=== PATIENT | male | born 1975 | race Caucasian/White ===

== ENCOUNTER 2017-07-03 17:32 | Emergency (ER) | payer OTHER, MEDICAID, SELFPAY ==
[2017-07-03 19:00] VITALS: BP 117/72; PULSE 53; RESP 18; TEMP 36.6; O2SAT 98; BMI 30.5
--- NOTE | 2017-07-03 20:06 | ED_ITS ---
HPI - Dental/Oral <Wanda Dias PA-C - Last Filed: 07/03/17 21:57> General Chief complaint: Dental/Oral Stated complaint: TOOTH INFECTION Time Seen by Provider: 07/03/17 20:01 Source: patient Mode of arrival: ambulatory Limitations: no limitations History of Present Illness HPI Narrative: This 41-year-old male has had problems with inflammation in his right lower wisdom tooth for about a month. He states he has poor dentition and has had problems intermittently. He has been trying to get into a dentist but so far not finding 1 that takes his insurance locally. He states he has noticed swelling and intermittent purulent drainage from around the tooth, and was concerned that he should be on antibiotics for this while he waits for dental appointment. He denies any fever, upper respiratory symptoms, swollen glands or other new complaints with this. He is not having pain. He notes that his last two dental infections did not resolve with amox. Related Data Home Medications Medication Instructions Recorded Confirmed fluoxetine [Prozac] 60 mg PO QDAY #0 11/05/12 levothyroxine 200 mcg IV Q24H #0 11/05/12 bupropion HCl [Wellbutrin SR] PO QDAY #0 11/08/15 Previous Rx's Medication Instructions Recorded penicillin V potassium 500 mg PO Q6H #40 tab 11/08/15 cyclobenzaprine 5 mg PO Q8HP PRN #10 tab 01/25/16 naproxen 500 mg PO Q12HP PRN #20 tab 01/25/16 Allergies Allergy/AdvReac Type Severity Reaction Status Date / Time codeine AdvReac Mild NAUSEA Unverified 05/24/17 13:03 Review of Systems <Wanda Dias PA-C - Last Filed: 07/03/17 21:57> Review of Systems All systems reviewed & are unremarkable except as noted in HPI and below Exam <Wanda Dias PA-C - Last Filed: 07/03/17 21:57> Narrative Exam Narrative: GENERAL APPEARANCE: Patient sitting comfortably, in no distress. HEAD: No sinus TTP. EYES: PERRL, EOMI. EARS: Normal auditory canals, TMS intact with normal light reflexes. ORAL CAVITY: Poor dentition. There is erythema and edema around the right lower wisdom tooth and 2nd molar without active drainage, mildly tender to touch THROAT: Clear. NECK/THYROID: Neck supple, full range of motion, no cervical lymphadenopathy. LUNGS: Clear to auscultation bilaterally, clear to percussion, no cough on exam. HEART: RRR without murmur, nl S1, S2, no S3 or S4. Initial Vital Signs Initial Vital Signs: Vital Signs Temperature 97.9 F 07/03/17 19:00 Pulse Rate 53 L 07/03/17 19:00 Respiratory Rate 18 07/03/17 19:00 Blood Pressure 117/72 07/03/17 19:00 Pulse Oximetry 98 07/03/17 19:00 <Uche Fonseca MD - Last Filed: 07/14/17 08:32> Initial Vital Signs Initial Vital Signs: Vital Signs Temperature 97.9 F 07/03/17 19:00 Pulse Rate 53 L 07/03/17 19:00 Respiratory Rate 18 07/03/17 19:00 Blood Pressure 117/72 07/03/17 19:00 Pulse Oximetry 98 07/03/17 19:00 Course <Wanda Dias PA-C - Last Filed: 07/03/17 21:57> Vital Signs - 8 hr 07/03/17 19:00 07/03/17 20:33 Temperature 97.9 F 98.2 F Pulse Rate 53 L 54 L Respiratory Rate 18 16 Blood Pressure 117/72 115/70 Pulse Oximetry 98 98 <Uche Fonseca MD - Last Filed: 07/14/17 08:32> Vital Signs - 8 hr 07/03/17 19:00 07/03/17 20:33 Temperature 97.9 F 98.2 F Pulse Rate 53 L 54 L Respiratory Rate 18 16 Blood Pressure 117/72 115/70 Pulse Oximetry 98 98 Discharge Plan Departure Patient Disposition: Home, Self-Care Clinical Impression: Dental infection Discharge Date/Time: 07/03/17 20:33 Interventions: ED Discharge Assessment Last Done: 07/03/17 20:33 Instructions: DI for Tooth Abscess Activity Restrictions/Additional Instructions: Return if you are feeling acutely worse, otherwise start the antibiotic as soon as you pick it up. Use ibuprofen or Aleve over the counter as needed for pain. Call [facility] in [facility] tomorrow to see about an appointment with them (they are most likely to take your insurance from the dentists I know in this area) Prescriptions: No Action levothyroxine 200 MCG recon soln 200 mcg IV Q24H Qty: 0 RF: 0 fluoxetine [Prozac] 40 MG capsule 60 mg PO QDAY Qty: 0 RF: 0 bupropion HCl [Wellbutrin SR] 100 mg Tablet Extended Release 12 Hr PO QDAY Qty: 0 RF: 0 penicillin V potassium 500 MG tablet 500 mg PO Q6H Qty: 40 RF: 0 naproxen 500 MG tablet 500 mg PO Q12HP PRNQty: 20 RF: 0 cyclobenzaprine 5 MG tablet 5 mg PO Q8HP PRNQty: 10 RF: 0 Referrals: Paras Santillan MD [Primary Care Provider] - <Uche Fonseca MD - Last Filed: 07/14/17 08:32> Cosign ED Attending Cosignature Attestation: The PA/INFORMATION MANAGEMENT MANAGER functioned independently for the care of this pt, I was available, but not asked to participate in care. I am unable to determine appropriateness of management without personally examining the pt.
[2017-07-03 20:33] VITALS: BP 115/70; PULSE 54; RESP 16; TEMP 36.8; O2SAT 98
== END 2017-07-03 20:33 | disposition home or self-care (01) ==
PROVIDERS: Emergency Provider Internal Medicine; PCP Family Medicine
DX: K04.7 Periapical abscess without sinus (principal)
CPT/HCPCS: 99282

== ENCOUNTER → 2018-06-05 20:04 | Outpatient (CLI) | payer OTHER, SELFPAY | LOC: LAB 20:05 | PROVIDERS: PCP Family Medicine; Visit Provider Physician Assistant | DX: L98.9 Disorder of the skin and subcutaneous tissue, unspecified (principal) | CPT/HCPCS: 87070; 87075; 87077; 87147; 87205 ==

== ENCOUNTER → 2018-09-18 16:47 | Outpatient (CLI) | payer OTHER, SELFPAY ==
[2018-09-18 17:40] LABS: Alanine Aminotransferase 45 IU/L (21-72); Albumin 4.4 g/dL (3.5-5.0); Albumin Globulin Ratio 1.3 (1.0-2.8); Alkaline Phosphatase 80 U/L (38-126); Aspartate Aminotransferase 39 IU/L (17-59); Bilirubin Total 0.5 mg/dL (0.2-1.3); Bilirubin Unconjugated 0.2 mg/dL (0.0-1.1); Globulin 3.3 g/dL (1.7-4.1); HEMOLYSIS 18 (0-50); Total Protein 7.7 g/dL (6.3-8.2)
== END ==
PROVIDERS: PCP Family Medicine; Visit Provider Family Medicine
DX: R74.8 Abnormal levels of other serum enzymes (principal)
CPT/HCPCS: 36415; 80076

== ENCOUNTER → 2018-10-19 16:32 | Outpatient (CLI) | payer OTHER, SELFPAY ==
[2018-10-19 18:15] LABS: Free T3, Triiodothyronine Free 4.53 pg/mL (2.77-5.27); Free T4, Direct Thyroxine 1.72 ng/dL (0.78-2.19)
[2018-10-19 18:29] LABS: Thyroid Stimulating Hormone < 0.02 uIU/mL (0.47-4.68)
== END ==
PROVIDERS: PCP Family Medicine; Visit Provider Family Medicine
DX: E03.9 Hypothyroidism, unspecified (principal)
CPT/HCPCS: 36415; 84439; 84443; 84481

== ENCOUNTER → 2019-03-08 16:33 | Outpatient (CLI) | payer OTHER, SELFPAY ==
[2019-03-08 17:30] LABS: Free T3, Triiodothyronine Free 4.48 pg/mL (2.77-5.27); Free T4, Direct Thyroxine 1.84 ng/dL (0.78-2.19)
[2019-03-08 17:44] LABS: Thyroid Stimulating Hormone < 0.02 uIU/mL (0.47-4.68)
== END ==
PROVIDERS: PCP Family Medicine; Visit Provider Family Medicine
DX: E03.9 Hypothyroidism, unspecified (principal); F33.1 Major depressive disorder, recurrent, moderate
CPT/HCPCS: 36415; 84439; 84443; 84481

== ENCOUNTER → 2019-07-09 15:42 | Outpatient (CLI) | payer OTHER, SELFPAY ==
[2019-07-09 17:01] LABS: Alanine Aminotransferase 31 IU/L (<50); Albumin 4.1 g/dL (3.5-5.0); Albumin Globulin Ratio 1.2 (1.0-2.8); Alkaline Phosphatase 80 U/L (38-126); Aspartate Aminotransferase 29 IU/L (17-59); Bilirubin Total 0.4 mg/dL (0.2-1.3); Bilirubin Unconjugated 0.2 mg/dL (0.0-1.1); Globulin 3.3 g/dL (1.7-4.1); HEMOLYSIS < 15 (0-50); Total Protein 7.4 g/dL (6.3-8.2)
[2019-07-09 17:18] LABS: Free T3, Triiodothyronine Free 4.46 pg/mL (2.77-5.27)
[2019-07-09 17:32] LABS: Thyroid Stimulating Hormone < 0.02 uIU/mL (0.47-4.68)
== END ==
PROVIDERS: PCP Family Medicine; Referring Provider Family Medicine; Visit Provider Family Medicine
DX: E03.9 Hypothyroidism, unspecified (principal); R74.8 Abnormal levels of other serum enzymes
CPT/HCPCS: 36415; 80076; 84439; 84443; 84481

== ENCOUNTER → 2019-07-10 06:43 | Outpatient (CLI) | payer OTHER, SELFPAY ==
--- NOTE | 2019-07-10 | DI.US.S_ITS ---
PROCEDURE: US PERIPH VENOUS LOW EXTREM RT INDICATIONS: CALF PAIN TECHNIQUE: Real-time imaging, as well as color and pulse Doppler interrogation, were performed of the lower extremity deep veins from the inguinal ligament to the popliteal fossa. COMPARISON: None. FINDINGS: The common femoral, femoral and popliteal veins are normally compressible, and free of intraluminal thrombus. Color and pulse Doppler demonstrate normal phasic intraluminal flow. There is normal augmentation response to distal compression maneuver. IMPRESSION: No DVT found. Superficial vein varicosities are noted to contain thrombosis in the right lower calf area, palpable and tender. Dictated by: Luis Felipe Mello M.D. on 07/10/2019 at 10:58 Approved by: Luis Felipe Mello M.D. on 07/10/2019 at 10:59
== END ==
LOC: US 06:44
PROVIDERS: PCP Family Medicine; Referring Provider Family Medicine; Visit Provider Family Medicine
DX: M79.661 Pain in right lower leg (principal); I82.811 Embolism and thrombosis of superficial veins of right lower extremity
CPT/HCPCS: 93971

== ENCOUNTER → 2020-08-24 07:38 | Outpatient (CLI) | payer OTHER, SELFPAY ==
[2020-08-24 09:27] LABS: Add Manual Diff / Slide Review NO; Basophils Absolute Auto 100 /uL (0-100); Basophils Percent Auto 0.8 % (0-2); Eosinophils Absolute Auto 300 /uL (0-450); Eosinophils Percent Auto 5.3 % (2-4); Hematocrit 48.6 % (41-53); Hemoglobin 16.6 g/dL (13.5-17.5); Lymphocytes Absolute Auto 1900 /uL (1100-4500); Lymphocytes Percent Auto 30.1 % (25-40); Mean Corpuscular HGB Conc 34.1 % (30-36); Mean Corpuscular Hemoglobin 29.4 PG (26-34); Monocytes Absolute Auto 500 /uL (0-900); Monocytes Percent Auto 7.2 % (3-14); Neutrophils Absolute Auto 3600 /uL (1500-7000); Neutrophils Percent Auto 56.6 % (50-75); Platelet Count 307 X10^3/uL (150-400); Red Blood Cell Count 5.65 X10^6/uL (4.5-5.9); Red Cell Distribution Width 13.9 % (11.6-14.8); White Blood Cell Count 6.4 X10^3/uL (4.5-11.0)
[2020-08-24 09:54] LABS: Alanine Aminotransferase 62 IU/L (<50); Albumin 4.2 g/dL (3.5-5.0); Albumin Globulin Ratio 1.1 (1.0-2.8); Alkaline Phosphatase 84 U/L (38-126); Aspartate Aminotransferase 64 IU/L (17-59); BUN Creatinine Ratio 23.3 (6-22); Bilirubin Total 1.1 mg/dL (0.2-1.3); Bilirubin Unconjugated 0.6 mg/dL (0.0-1.1); Blood Urea Nitrogen 17 mg/dL (9-20); Calcium 9.2 mg/dL (8.4-10.2); Carbon Dioxide 25 mmol/L (22-32); Chloride 102 mmol/L (98-107); Cholesterol 211 mg/dL (140-199); Estimated Glomerular Filt Rate > 60.0 mL/min (>60); Globulin 3.8 g/dL (1.7-4.1); Glucose 91 mg/dL (70-100); HDL Cholesterol 51 mg/dL (40-60); LDL Cholesterol Calculated 121 mg/dL (<100); Potassium 4.3 mmol/L (3.4-5.1); Sodium 134 mmol/L (137-145); Triglycerides 193 mg/dL (35-150)
[2020-08-24 10:00] LABS: Iron 122 ug/dL (49-181)
[2020-08-24 10:02] LABS: HEMOLYSIS 116 (0-50)
[2020-08-24 10:26] LABS: Thyroid Stimulating Hormone < 0.015 uIU/mL (0.47-4.68)
[2020-08-24 10:27] LABS: Ferritin 114 ng/mL (18-464)
[2020-08-24 16:56] LABS: HIV 1 & 2 Ab/Ag 4th Gen Combo NEGATIVE (NEGATIVE)
[2020-08-24 17:12] LABS: Free T3, Triiodothyronine Free 4.74 pg/mL (2.77-5.27); Free T4, Direct Thyroxine 1.66 ng/dL (0.78-2.19)
== END ==
PROVIDERS: PCP Family Medicine; Referring Provider Family Medicine; Visit Provider Family Medicine
DX: R74.8 Abnormal levels of other serum enzymes (principal); E03.9 Hypothyroidism, unspecified; Z13.220 Encounter for screening for lipoid disorders; Z83.2 Family history of diseases of the blood and blood-forming organs and certain disorders involving the immune mechanism
CPT/HCPCS: 36415; 80053; 80061; 80076; 82728; 83540; 84439; 84443; 84481; 85025; 87389

== ENCOUNTER → 2021-07-06 16:47 | Outpatient (CLI) | payer OTHER, SELFPAY ==
[2021-07-06 17:26] LABS: Add Manual Diff / Slide Review NO; Basophils Absolute Auto 100 /uL (0-100); Eosinophils Absolute Auto 200 /uL (0-450); Eosinophils Percent Auto 2.9 % (2-4); Hematocrit 45.5 % (41-53); Hemoglobin 15.8 g/dL (13.5-17.5); Lymphocytes Absolute Auto 2000 /uL (1100-4500); Lymphocytes Percent Auto 27.6 % (25-40); Mean Corpuscular HGB Conc 34.8 % (30-36); Mean Corpuscular Hemoglobin 29.5 PG (26-34); Mean Corpuscular Volume 84.7 fL (80-100); Monocytes Absolute Auto 500 /uL (0-900); Monocytes Percent Auto 7.4 % (3-14); Neutrophils Absolute Auto 4500 /uL (1500-7000); Neutrophils Percent Auto 61.1 % (50-75); Platelet Count 303 X10^3/uL (150-400); Red Blood Cell Count 5.37 X10^6/uL (4.5-5.9); Red Cell Distribution Width 14.2 % (11.6-14.8); White Blood Cell Count 7.3 X10^3/uL (4.5-11.0)
[2021-07-06 17:57] LABS: Alanine Aminotransferase 44 IU/L (<50); Albumin 4.3 g/dL (3.5-5.0); Albumin Globulin Ratio 1.2 (1.0-2.8); Alkaline Phosphatase 79 U/L (38-126); Aspartate Aminotransferase 44 IU/L (17-59); BUN Creatinine Ratio 26.2 (6-22); Bilirubin Total 0.4 mg/dL (0.2-1.3); Blood Urea Nitrogen 22 mg/dL (9-20); Carbon Dioxide 25 mmol/L (22-32); Chloride 103 mmol/L (98-107); Estimated Glomerular Filt Rate > 60 mL/min (>60); Globulin 3.5 g/dL (1.7-4.1); Glucose 101 mg/dL (70-100); HEMOLYSIS 34 (0-50); Iron 129 ug/dL (49-181); Potassium 4.3 mmol/L (3.4-5.1); Sodium 135 mmol/L (137-145); Total Protein 7.8 g/dL (6.3-8.2)
[2021-07-06 18:28] LABS: Thyroid Stimulating Hormone < 0.015 uIU/mL (0.47-4.68)
[2021-07-06 18:29] LABS: Ferritin 74 ng/mL (18-464); Testosterone 176 ng/dL (132-813)
== END ==
PROVIDERS: PCP Family Medicine; Referring Provider Family Medicine; Visit Provider Family Medicine
DX: E03.9 Hypothyroidism, unspecified (principal); R53.81 Other malaise
CPT/HCPCS: 36415; 80053; 82728; 83540; 84403; 84443; 85025

== ENCOUNTER → 2022-01-18 09:31 | Outpatient (CLI) | payer OTHER, SELFPAY ==
[2022-01-18 11:59] LABS: TSH w/ Reflex to FT4 0.86 uIU/mL (0.47-4.68)
[2022-01-28 09:01] LABS: Percent Free Testosterone 2.61 % (1.50-4.20)
== END ==
PROVIDERS: PCP Family Medicine; Referring Provider Family Medicine; Visit Provider Family Medicine
DX: E29.1 Testicular hypofunction (principal); E03.9 Hypothyroidism, unspecified
CPT/HCPCS: 36415; 84402; 84403; 84443